=== PATIENT | male | born 1945 | race Caucasian/White ===

== ENCOUNTER 2018-09-21 10:54 | Emergency (ER) | payer BC, MEDICARE ==
[2018-09-21 11:14] VITALS: BP 131/74
--- NOTE | 2018-09-21 11:32 | UC ---
Ear Complaint HPI - HPI Summary HPI Summary: Patient presents to urgent care with 36 hours of progressive right ear pain and fullness. Patient states his been popping. Patient states he noticed when he was chewing me over the weekend that he felt some fullness in the right ear. Patient denies nausea or vomiting. Patient had fevers and Thursday. Patient did have a head cold that has mostly gotten better other than his ear. Patient denies any jaw pain. Patient has dentures but no pain or lesions on his comes under them. No nausea vomiting. No analgesia taken. Patient's medications reviewed this visit. - History of Current Complaint Chief Complaint: UCEar Stated Complaint: RIGHT EAR Time Seen by Provider: 09/21/18 11:30 Hx Obtained From: Patient Severity Initially: Moderate Severity Currently: Moderate Pain Intensity: 5 Pain Scale Used: 0-10 Numeric - Allergies/Home Medications Allergies/Adverse Reactions: Allergies Allergy/AdvReac Type Severity Reaction Status Date / Time No Known Allergies Allergy Verified 09/21/18 11:13 Home Medications: Home Medications Naproxen Sodium [Aleve] 440 mg PO ONCE PRN 09/21/18 [History Confirmed 09/21/18] Omeprazole 20 mg PO DAILY 09/21/18 [History Confirmed 09/21/18] PMH/Surg Hx/FS Hx/Imm Hx Previously Healthy: Yes Cardiovascular History: Hypertension - Surgical History Surgical History: Yes Surgery Procedure, Year, and Place: hernia repair, shoulder surgery - Family History Known Family History: Positive: Non-Contributory - Social History Occupation: Retired Alcohol Use: Weekly Alcohol Amount: 3 beers Substance Use Type: None Smoking Status (MU): Former Smoker Type: Cigarettes When Did the Patient Quit Smoking/Using Tobacco: 25 YRS AGO - Immunization History Most Recent Influenza Vaccination: FALL 2012 Review of Systems All Other Systems Reviewed And Are Negative: Yes Constitutional: Positive: Fever - resolved Eyes: Positive: Negative ENT: Positive: Ear Ache, Sinus Congestion. Negative: Dental Pain, Sore Throat, Nasal Discharge Respiratory: Positive: Negative Cardiovascular: Positive: Negative Gastrointestinal: Positive: Negative Genitourinary: Positive: Negative Motor: Positive: Negative Neurovascular: Positive: Negative Musculoskeletal: Positive: Negative Physical Exam - Summary Physical Exam Summary: Vital Signs Reviewed: Yes A+Ox3, no distress Eyes: Conjunctiva Clear, PAULA. EOM intact and full ENT: Hearing grossly normal Pt with small ear canals - left obscurred by shape/ size- baseline per pt right manual debridement cerumen, visulaized 2/3 canal - + erythema, fluid, fullness. No TMJ pain. no mastoid pain. No gnosticist pain. turbinate boggy, mmoist, uvula midline, no exudate, no erythema Neck: Positive: Supple Respiratory: Positive: No respiratory distress, No accessory muscle use + CTA throughout no w/r Cardiovascular: RRR nl s1, s2 no m/r CBT <2 sec abd soft + BS nt/nd no guarding, no distension Musculoskeletal Exam: BADILLO x 4 without difficulty Strength Intact, ROM Intact Neurological: Positive: Alert, + sensation throughout Psychological: Positive: Normal Response To Family Skin: Positive: no rash, no ecchymosis Triage Information Reviewed: Yes Vital Signs: Initial Vital Signs Temp 97.6 F 09/21/18 11:10 Pulse 60 09/21/18 11:10 Resp 17 09/21/18 11:10 BP 131/74 09/21/18 11:10 Pulse Ox 97 09/21/18 11:10 Ear Complaint Course/Dx - Course Course Of Treatment: Patient had a head cold last week. No presents with progressive right ear fullness and pain. On exam patient with some turbinate fullness and erythema fluid to the right ear. Patient with very small canals unable to visualize the entire TM. Based on visualize part Walser patient on antibiotics. Patient does have Flonase patient restart. Motrin/Tylenol. Recheck. Patient comfortable in agreement with plan. - Differential Dx/Diagnosis Provider Diagnosis: URI (upper respiratory infection), Otitis media Discharge - Sign-Out/Discharge Documenting (check all that apply): Patient Departure All imaging exams completed and their final reports reviewed: No Studies - Discharge Plan Condition: Stable Disposition: HOME Prescriptions: Amoxicillin 500 mg PO BID #20 capsule Patient Education Materials: Ear Infection (ED), Upper Respiratory Infection ( ED) Referrals: Alexandr MORALES,Radhames Iverson [Primary Care Provider] - Additional Instructions: - Stay well hydrated. Drink plenty of non-alcoholic, non-caffinated beverages. - Alternate ibuprofen (Advil, Motrin) 600mg and Tylenol every 3 hours for pain or fever. Take with food. Do NOT take for more than 4-5 days. - These infections are spread by secretions - do NOT share eating or drinking utensils - clean items you share with other people such as cell phones, computer mouse, TV remote, computer tablets,etc. Once you have been on antibiotics for 2 days, change your toothbrush and your pillowcase. - get plenty of restful sleep - humidify the air in the room where you sleep - boil water, run a hot steam shower, vaporizer, cups of water by heat register - okay to take over the counter decongestant and cough medication - resume taking flonase, one spray each nostril, daily - contact your doctor or return with questions or concerns - Billing Disposition and Condition Condition: STABLE Disposition: Home
== END 2018-09-21 11:53 | disposition home or self-care (01) ==
LOC: UCCORT 10:54
DX: J06.9 Acute upper respiratory infection, unspecified (principal); H66.90 Otitis media, unspecified, unspecified ear; Z87.891 Personal history of nicotine dependence; I10 Essential (primary) hypertension
CPT/HCPCS: 99202; G0463